=== PATIENT | female | born 1980 | race Caucasian/White ===

== ENCOUNTER → 2023-12-13 16:44 | Outpatient (CLI) | payer OTHER, SELFPAY ==
--- NOTE | 2023-12-13 | DI.MRI.S_ITS ---
PROCEDURE: MR KNEE RT WO CON INDICATIONS: meniscus derangements right knee TECHNIQUE: Noncontrast sagittal PD fast spin echo and T2 fast spin echo with fat saturation, sagittal 3-D FLASH with fat saturation; coronal T1 spin echo and PD fast spin echo with fat saturation, and axial PD fast spin echo with fat saturation through the knee. COMPARISON: [facility] [place], CR, XR KNEE ARTHRITIC SERIES BI, 12/02/2023, 11:03. FINDINGS: Image quality: Excellent. Menisci: No tear of the medial meniscus. There is extrusion of the medial meniscus body. In the lateral meniscus, there is inner margin blunting of the posterior horn, and horizontal oblique tear of the meniscus body. No extrusion of the lateral meniscus. Cruciate ligaments: The anterior and posterior cruciate ligaments appear intact. Medial structures: The medial collateral ligament appears intact. The posterior oblique ligament, semimembranosus tendon insertions, oblique popliteal ligament, and meniscocapsular junction appear intact. Visualized portions of the pes anserinus tendons appear normal. No abnormal bursal fluid. Lateral structures: The lateral collateral ligament, long and short heads of the biceps femoris tendon appear intact. The popliteus tendon appears normal; the popliteofibular ligament appears intact. The posterosuperior and anteroinferior popliteomeniscal fascicles appear intact. The arcuate and fabellofibular ligaments appear intact, on either side of the lateral inferior geniculate artery. Iliotibial band appears normal. Anterior structures: The quadriceps and patellar tendon is intact. The medial and lateral patellofemoral ligament is intact. Bones and cartilage: Lateral tilt of the patella. There is near chondral denudation of the lateral patellar facet with subchondral cystic changes and subchondral marrow edema. Mild chondral thinning of the lateral facet. There is complete chondral denudation of the lateral trochlea with osteophytosis and associated subchondral marrow edema. There is osteophytosis of the medial trochlea as well. The cartilage of the medial and lateral compartment are well maintained. No acute fracture. Joint space: Moderate knee effusion with multiple intra-articular bodies, for reference, the largest 1 is anterior to the intercondylar notch, measuring 1.1 cm (series 5, image 21). Small popliteal cyst. IMPRESSION: 1. Mild extrusion of the medial meniscus body without tear. 2. Tear of the lateral meniscus. 3. Lateral tilt of the patella. Severe chondrosis of the patellofemoral compartment. 4. Moderate knee effusion with multiple intra-articular bodies. Dictated by: Renee Valle M.D. on 12/14/2023 at 19:41 Approved by: Renee Valle M.D. on 12/14/2023 at 19:51
== END ==
LOC: MRI 16:47
PROVIDERS: PCP Registered Nurse; Referring Provider Physical Medicine & Rehabilitation; Visit Provider Physical Medicine & Rehabilitation
DX: S83.281A Other tear of lateral meniscus, current injury, right knee, initial encounter (principal); M22.41 Chondromalacia patellae, right knee; M25.461 Effusion, right knee; M71.21 Synovial cyst of popliteal space [Baker], right knee
CPT/HCPCS: 73721

== ENCOUNTER → 2024-01-19 16:30 | Outpatient (CLI) | payer OTHER, SELFPAY ==
[2024-01-19 17:38] LABS: Albumin 4.3 g/dL (3.5-5.0); Blood Urea Nitrogen 12 mg/dL (7-17); Carbon Dioxide 25 mmol/L (22-32); Chloride 106 mmol/L (98-107); Estimated Glomerular Filt Rate > 60 mL/min (>60); Glucose 192 mg/dL (70-100); HEMOLYSIS < 15 (0-50); Sodium 136 mmol/L (137-145)
[2024-01-19 17:43] LABS: Hemoglobin A1C% w Est Avg Glu 6.6 % (4.0-6.0)
[2024-01-19 17:45] LABS: Add Manual Diff / Slide Review NO; Basophils Absolute Auto 100 /uL (0-100); Basophils Percent Auto 1.2 % (0-2); Eosinophils Absolute Auto 300 /uL (0-450); Eosinophils Percent Auto 5.1 % (2-4); Hematocrit 37.2 % (36-46); Hemoglobin 12.2 g/dL (12.0-16.0); Lymphocytes Absolute Auto 1600 /uL (1100-4500); Lymphocytes Percent Auto 29.2 % (25-40); Mean Corpuscular HGB Conc 32.8 % (30-36); Mean Corpuscular Hemoglobin 28.3 PG (26-34); Mean Corpuscular Volume 86.2 fL (80-100); Monocytes Absolute Auto 500 /uL (0-900); Monocytes Percent Auto 9.5 % (3-14); Neutrophils Absolute Auto 3000 /uL (1500-7000); Platelet Count 294 X10^3/uL (150-400); Prealbumin 16.6 mg/dL (17.6-36.0); Red Blood Cell Count 4.32 X10^6/uL (4.0-5.2); Red Cell Distribution Width 15.3 % (11.6-14.8); White Blood Cell Count 5.4 X10^3/uL (4.5-11.0)
[2024-01-19 17:55] LABS: Vitamin D 25 Hydroxy (D3) 31.6 ng/mL (30.0-100.0)
== END ==
LOC: LAB 16:31
PROVIDERS: PCP Registered Nurse; Referring Provider Orthopaedic Surgery Adult Reconstructive Orthopaedic Surgery; Visit Provider Orthopaedic Surgery Adult Reconstructive Orthopaedic Surgery
DX: Z01.818 Encounter for other preprocedural examination (principal); Z01.812 Encounter for preprocedural laboratory examination; R77.0 Abnormality of albumin; E55.9 Vitamin D deficiency, unspecified
CPT/HCPCS: 36415; 80048; 82040; 82306; 83036; 84134; 85025

== ENCOUNTER → 2024-01-19 17:32 | Outpatient (CLI) | payer OTHER, SELFPAY | LOC: RESP 17:34 | PROVIDERS: PCP Registered Nurse; Referring Provider Orthopaedic Surgery Adult Reconstructive Orthopaedic Surgery; Visit Provider Orthopaedic Surgery Adult Reconstructive Orthopaedic Surgery | DX: Z01.818 Encounter for other preprocedural examination (principal) | CPT/HCPCS: 36415; 80048; 82040; 82306; 83036; 84134; 85025; 93005; 93010 ==

== ENCOUNTER 2024-03-06 06:11 | Day surgery (SDC) | payer OTHER, SELFPAY ==
[2024-02-23 12:30] VITALS: BMI 29.0
--- NOTE | 2024-03-05 20:41 | DI.RAD.S_ITS ---
PROCEDURE: XR KNEE LT 1TO2V INDICATIONS: tka TECHNIQUE: 2 view(s) of the knee acquired. COMPARISON: [facility], CR, XR BONE LENGTH SCANOGRAM, 02/17/2024, 16:09. [facility], [place], XR KNEE RT 1TO2V, 03/06/2024, 12:33. FINDINGS: Bones: Patient is status post knee joint arthroplasty. Hardware components are in expected positions. Visualized bony structures are intact. Soft tissues: Overlying postoperative changes are noted. IMPRESSION: Expected post-operative appearance of a knee arthroplasty. Dictated by: Noah Mccarthy M.D. on 03/06/2024 at 14:05 Approved by: Noah Mccarthy M.D. on 03/06/2024 at 14:06
--- NOTE | 2024-03-05 20:41 | DI.RAD.S_ITS ---
PROCEDURE: XR KNEE RT 1TO2V INDICATIONS: tka TECHNIQUE: 3 view(s) of the knee acquired. COMPARISON: [facility], V[place], XR KNEE LT 1TO2V, 03/06/2024, 12:33. [facility] [place], CR, XR BONE LENGTH SCANOGRAM, 02/17/2024, 16:09. FINDINGS: Bones: Patient is status post knee joint arthroplasty. Hardware components are in expected positions. Visualized bony structures are intact. Soft tissues: Overlying postoperative changes are noted. IMPRESSION: Expected post-operative appearance of a knee arthroplasty. Dictated by: Noah Mccarthy M.D. on 03/06/2024 at 14:07 Approved by: Noah Mccarthy M.D. on 03/06/2024 at 14:08
[2024-03-06] VITALS (11 sets, daily range): BP systolic 91–124; BP diastolic 44–78; PULSE 62–94; RESP 14–18; TEMP 36.3–36.7; O2SAT 93–100; BMI 27.3; BMI 60.4
[2024-03-06] MEDS: SCOPOLAMINE 1 PATCH TOP (06:58)
[2024-03-06] MEDS: LACTATED RINGERS 1,000 ML 42 ML IV ×3 (06:58→11:06)
[2024-03-06] MEDS: CELECOXIB 200 MG CAPSULE 400 MG PO (06:59)
[2024-03-06] MEDS: ACETAMINOPHEN 325 MG TABLET 975 MG PO (06:59)
[2024-03-06] MEDS: MIDAZOLAM 2 MG/2 ML VIAL IV (07:52)
--- NOTE | 2024-03-06 07:55 | PM.PREOP ---
Pre-operative Note Interval Note History & Physical reviewed/Exam performed by Physician: Yes Changes to H&P: No
[2024-03-06] MEDS: TRANEXAMIC ACID 1,000 MG VIAL 1000 MG INJ ×2 (08:15→12:00)
[2024-03-06] MEDS: CEFAZOLIN 2 GM/100 ML PREMIX 100 ML IV ×3 (08:20→16:47)
--- NOTE | 2024-03-06 08:59 | SUR.OPER ---
Supine on padded OR bed. Pillow under head, arms secured on padded armboards <90 degree abduction. Safety belt across abdomen. Both leg ssecured in [employer]/Cheo/Nathe positioner. Foam padded brace at both thighs.
[2024-03-06] MEDS: ROPIVACAINE/EPI/CLONIDINE/KET 50 ML SYRINGE 100 ML INJ (09:15)
--- NOTE | 2024-03-06 12:11 | P.OP_ITS ---
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 She had previously run in competitive ultra marathons and had progressed to the point that she was only able to run 5 miles at a time with severe pain afterwards, describing herself as being in tears at the conclusion of any run. She had tried numerous nonoperative modalities and attempt to control her symptoms including hyaluronic acid injections, PRP injections, physical therapy, activity modification, NSAIDs, Tylenol, ice. Having failed to maintain her high activity levels despite exhausting all available nonoperative treatment we discussed the role of knee replacement in improving her symptoms and function. Preoperative radiographs demonstrated severe patellofemoral degeneration with c oncomitant although less severe joint space narrowing in the medial and lateral compartments. We did discuss the possibility of patellofemoral arthroplasty to provide her symptom relief although based on the presence of degeneration occurring in the tibial femoral joint I felt that she would eventually progress to a total knee arthroplasty later in life and evidence on this regard indicates that the risk of conversion to total knee arthroplasty following patellofemoral arthroplasty is very high. I did discuss this in detail with her and she did additional research on that procedure and did not desire to move forward with what she viewed as a temporizing procedure. We therefore discussed the role of total knee arthroplasty. Her desire to returned to running postoperatively was the most pertinent factor in our discussions of this potential procedure. There is scant evidence regarding running following joint replacement as this is traditionally been cautioned against prior to the muslim of highly cross-linked polyethylene. The best available evidence we were able to find suggested that 1 in 3 patients who desired to returned to running following the joint replacement were unable to do so because of ongoing pain. I discussed this with her in detail and she expressed that if she was not able to returned to running due to pain but was able to returned to long-distance biking she would view this as a satisfactory outcome. She therefore elected to move forward with total knee arthroplasty. She desired to move forward with this in a simultaneous fashion and was counseled regarding the difficult recovery associated with bilateral knee replacement as well as the increase in perioperative risks. Understanding these risks she wished to proceed with simultaneous surgery. Intraoperatively similar findings were discovered in the bilateral knees. She did have predominantly patellofemoral degeneration however her femoral sided degenerative changes extended well outside of the balance of a patellofemoral arthroplasty down into the articulation with the tibia. On both sides she had large osteophytes extending down into the medial and lateral femur and subchondral sclerosis throughout those regions. On the right side which was performed 1st, I initially cut the tibia at 4 mm off the medial side after using electrocautery to identify the subchondral bone underneath the remaining cartilage in the tibia. I initially found that I was unable to place a size 10 spacer block in the extended joint so I recut the tibia for an additional 2 mm. I was then able to fit a size 10 spacer block in but when I used the gap balancing device indicated that I was tight laterally. I had not anticipated that this would be the case as she had more varus wear on her standing AP radiograph but had valgus alignment on her long leg scanogram. As I had not expected any sort of soft tissue released to be necessary in order to balance her knee I therefore rechecked the tibial cut. I found that when I had cut the tibia for an additional 2 mm it had been cut into slight valgus. I therefore replaced the cut block and we ran the saw over the lateral side of the tibia. There was some sclerotic bone in that area which had deflected the saw blade. After recovering it the alignment of the tibial cut was improved to mechanical alignment and the gap visual designer now indicated appropriate balanced between the medial and lateral sides. The right side progressed from there to balanced with 3? of femoral rotation, a size 9 femur, and a size E tibia. Given her young age and high activity level I strongly desired biologic fixation and used uncemented components. Because of her intended high activity level I did not resurface her patella. Although she does have predominantly patellofemoral based degeneration the evidence regarding uncemented fixation of patellar components is poor and I worried about the potential of loosening of a patellar component should I have cemented one in place. I therefore performed a lateral facetectomy and left the patella unresurfaced. The decision to leave her patella un resurfaced was discussed in great detail with her preoperatively. Additionally, her father is a retired orthopedic surgeon and I spoke with him at length regarding my plan for her procedure with particular emphasis on my plan to leave her patella unresurfaced in order to maximize the durability of her knee construct given her postoperative goals. After the conclusion of the right side all disposable instruments were replaced, the surgical team donned new gowns and gloves, and proceeded with the left side in similar fashion to the right. On the left side I took a 6 mm cut on the tibia given the need for a recut on the initial side. I ended up with similar, although slightly different, parameters for the left knee. I used a size 8 femur which is 1 size smaller than the contralateral side. I used a size E tibia which is 1 size larger than the contralateral side. I used a 11 mm medial congruent polyethylene insert, which was 1 size larger than the other side. At the conclusion of the procedure both sides had appropriate patellar tracking, good stability with varus and valgus stress with minimal lift-off in extension, full extension, no limitations in flexion such that the heel impacted the buttock when the knee was allowed to passively flex, and minimal lift-off of the medial and lateral compartments in 90? of flexion with internal and external rotation through the hip. Preoperative Setup: This patient was seen preoperatively and evaluated for knee pain which was refractory to numerous nonoperative treatment modalities. Their pain correlated with radiographic changes demonstrating significant degeneration in the knee joint. The risks and benefits of continued nonoperative management versus operative management were discussed at length and all of the patient?s questions were answered. Additional educational materials providing further details beyond our discussion in clinic were provided via a publicly available patient education video which included the incidence of medical complications associated with total knee arthroplasty, reasons for revision following total knee arthroplasty, and patient satisfaction rates following total knee arthroplasty. That video can be accessed at [email or web address] . With this understanding of the risks inherent to the procedure, the patient elected to move forward with operative management. Following preoperative optimization, the patient was scheduled for surgery. The patient was met in the preoperative holding area the day of the procedure and all questions were answered. The p atient?s nares were swabbed with betadine in order to decolonize them from MRSA. Informed consent was signed and the laterality limb was marked with indelible ink.? The patient was brought back to the operating room where anesthesia was induced. The patient was transferred to the operating table and all bony prominences were padded. The operative site was prepped and draped in the usual sterile fashion. A second prep stick was utilized following drape placement. The incision was marked corresponding to the medial aspect of the tibial tubercle and the patella. Ioban was wrapped circumferentially around the knee. Prior to incision, tranexamic acid and cefazolin were administered. Templating images were displayed. A timeout procedure was performed verifying the patient?s identity, medical comorbidities, allergies, relevant medications, anesthesia type and the surgical plan. All present were in agreement. The assistance of a physician foundation assistant was required for positioning, room setup, soft tissue retraction and wound closure. Without this assistance, the procedure would have been significantly more challenging and time consuming.?? Right Gap-Balanced Uncemented Debra Persona Medial-Congruent Primary Total Knee Arthroplasty Implants: * Size 9 PPS Cruciate Retaining Femoral Component * Size E OsseoTi Tibial Component * Size 10 Medial Congruent Polyethylene Insert * Unresurfaced Patella Procedure in Detail: The tourniquet was inflated prior to incision. I made an anterior incision over the knee, dissected through the subcutaneous tissues and identified the lateral border of the VMO. Medial and lateral soft tissue flaps were developed. A midvastus parapatellar arthrotomy was performed ensuring that adequate capsular tissue would remain for closure at the conclusion of the procedure. The hip was brought into extension and the medial soft tissues were released off the joint line of the tibia. Tissue overlying the distal anterior femur was released to allow for later assessment for anterior notching but left in place. A portion of the retropatellar fat pad was excised while protecting the patellar tendon. The patella was everted. The patella was not resurfaced. Osteophytes were excised and a lateral facetectomy was performed. The patella was released from its everted position. ?? I flexed the knee to 90 degrees and placed retractors to allow access to the notch. An opening reamer was used to gain access to the femoral canal and an intramedullary kalyan was introduced into the canal. Diaphyseal fit was obtained in order to allow a distal femoral resection at 5 degrees relative to the anatomic axis, thereby aiming to achieve mechanical alignment of the eventual implant. A +1 resection was planned and assessed using an adelina wing. I then made the cut using a sagittal saw. This provided additional access to the femoral notch. The ACL and PCL were excised. Retractors were placed on the lateral and medial tibia. I hyperflexed the knee while externally rotating it to sublux the tibia anteriorly. I placed a PCL retractor posteriorly and used this to provide additional anterior subluxation. The remainder of the PCL root was released. An intramedullary reamer was used in the ACL footprint to provide access to the tibial canal. An extramedullary guide was positioned to allow a resection perpendicular to the anatomic and mechanical axes of the tibia, thereby aiming to achieve mechanical alignment of the eventual implant. A +4 resection off the medial tibia was planned and the tibial cutting jig was pinned in place. I evaluated the cut depth, varus-valgus alignment and slope of the planned tibial resection and deemed them satisfactory. I cut the tibia with a sagittal saw while using retractors to protect the MCL, patellar tendon, and posterolateral structures.? I found that a size 10 spacer block was not able to fit in the knee so I recut for an additional 2 mm. The knee was repositioned in extension and the Fuzion soft tissue balancing gauge was introduced. This demonstrated that there was excess lateral tightness. I therefore rechecked the tibial cut and found that it was cut in valgus, likely during the recut when it had deflected off sclerotic bone laterally. I therefore replaced the cut guide and rewrap the saw over the lateral side resecting some additional bone there. I checked the cut alignment again and found that it was now in more neutral mechanical alignment. I rechecked the gap visual designer and found that there was now equal tension between the medial and lateral sides. When 60 pounds of force was applied to the Fuzion device, the extension gap opened to 11 mm. I moved the knee into 90 degrees of flexion, and the Fuzion device was recalibrated by removing a 9 mm siddhartha to allow assessment of the flexion gap. The Fuzion was placed perpendicular to the resected surface of the tibia and the resected surface of the distal femur. Sixty pounds of traction was applied to match the tension of the extension gap. This externally rotated the femur to 4 degrees. Pins were placed in the 10 mm holes. The measured resection guide was placed over the pins to allow sizing. Appropriate sizing was determined and a 4-in-1 block was placed. This was double checked using the Fuzion device to ensure that it would open to an equal distance as the extension gap when the same amount of force was applied. The Fuzion block was also used to assess flexion gap symmetry. An adelina wing was used to ensure there would be no anterior notching. Retractors were placed to protect the soft tissues during resection. Captured cuts were performed with a sagittal saw for the anterior and posterior femur as well as the corresponding chamfers.? Trial components were placed and the construct was assessed. Range of motion was assessed by ensuring the knee could achieve full extension and assessing maximum passive knee flexion by elevating the femur and allowing the heel to passively fall towards the buttock. Gap symmetry was assessed by stressing the medial and lateral compartments in both extension and flexion. Laxity was assessed in both extension and flexion and the polyethylene trial was adjusted with shims as necessary. Patellar tracking was assessed with knee flexion. Once satisfied with the construct, I moved forward with implant insertion. Lug holes were drilled in the femur and the tibia was prepped ensuring appropriate sizing and rotation relative to the tibial tubercle.?? The bony ends were irrigated. A portion of the anterior chamfer cut was utilized as to plug the hole in the femur from the intramedullary kalyan. I exposed the tibia and impacted the tibial component into place. The tibia was reduced underneath the femur. I placed the femoral component as well as the intended polyethylene trial. I brought the knee into extension and manually pressurized the construct by pushing on the heel. The knee was bathed in a dilute mixture of betadine and peroxide. A mixture of Ropivacaine, Epinephrine, Clonidine and Toradol was infiltrated throughout the soft tissues into structures including the VMO, patellar tendon, quadriceps tendon, MCL and femoral periosteum. A low adductor canal block was also performed using this mixture . The knee was copiously irrigated with pulse lavage. Once cement had been allowed to dry the knee was again trialed. Range of motion was assessed by ensuring the knee could achieve full extension and assessing maximum passive knee flexion by elevating the femur and allowing the heel to passively fall towards the buttock. Gap symmetry was assessed by stressing the medial and lateral compartments in both extension and flexion. Laxity was assessed in both extension and flexion and the polyethylene trial was adjusted with shims as necessary. Patellar tracking was assessed with knee flexion. The tourniquet was let down and the polyethylene trial was removed. I inspected the knee inspected for any residual bleeding. Once hemostasis was achieved I inserted the final polyethylene and ensured appropriate engagement of the dovetail locking mechanism.?? The arthrotomy was closed with absorbable interrupted suture ensuring that this extended to the top of the arthrotomy. This was backed up with running barbed suture throughout the arthrotomy. The skin was closed with 2-0 and 3-0 sutures. Surgical glue was applied and a soft dressing was placed.?The sponge, instrument and needle counts were reported as being correct at the end of the case.??No obvious complications occurred. Left Gap-Balanced Uncemented Debra Persona Medial-Congruent Primary Total Knee Arthroplasty Implants: * Size 8 PPS Cruciate Retaining Femoral Component * Size F OsseoTi Tibial Component * Size 11 Medial Congruent Polyethylene Insert * Unresurfaced Patella Procedure in Detail: The tourniquet was inflated prior to incision. I made an anterior incision over the knee, dissected through the subcutaneous tissues and identified the lateral border of the VMO. Medial and lateral soft tissue flaps were developed. A midvastus parapatellar arthrotomy was performed ensuring that adequate capsular tissue would remain for closure at the conclusion of the procedure. The hip was brought into extension and the medial soft tissues were released off the joint line of the tibia. Tissue overlying the distal anterior femur was released to allow for later assessment for anterior notching but left in place. A portion of the retropatellar fat pad was excised while protecting the patellar tendon. The patella was everted. The patella was not resurfaced. Osteophytes were excised and a lateral facetectomy was performed. The patella was released from its everted position. ?? I flexed the knee to 90 degrees and placed retractors to allow access to the notch. An opening reamer was used to gain access to the femoral canal and an intramedullary kalyan was introduced into the canal. Diaphyseal fit was obtained in order to allow a distal femoral resection at 5 degrees relative to the anatomic axis, thereby aiming to achieve mechanical alignment of the eventual implant. A +1 resection was planned and assessed using an adelina wing. I then made the cut using a sagittal saw. This provided additional access to the femoral notch. The ACL and PCL were excised. Retractors were placed on the lateral and medial tibia. I hyperflexed the knee while externally rotating it to sublux the tibia anteriorly. I placed a PCL retractor posteriorly and used this to provide additional anterior subluxation. The remainder of the PCL root was released. An intramedullary reamer was used in the ACL footprint to provide access to the tibial canal. An extramedullary guide was positioned to allow a resection perpendicular to the anatomic and mechanical axes of the tibia, thereby aiming to achieve mechanical alignment of the eventual implant. A +6 resection off the medial tibia was planned and the tibial cutting jig was pinned in place. I evaluated the cut depth, varus-valgus alignment and slope of the planned tibial resection and deemed them satisfactory. I cut the tibia with a sagittal saw while using retractors to protect the MCL, patellar tendon, and posterolateral structures.? The knee was repositioned in extension and the Fuzion soft tissue balancing gauge was introduced. This demonstrated that there was equal tension in the medial and lateral compartments of the knee with the knee in full extension and no additional soft tissue releases were necessary. When 50 pounds of force was applied to the Fuzion device, the extension gap opened to 12 mm. I moved the knee into 90 degrees of flexion, and the Fuzion device was recalibrated by removing a 9 mm siddhartha to allow assessment of the flexion gap. The Fuzion was placed perpendicular to the resected surface of the tibia and the resected surface of the distal femur. Fifty pounds of traction was applied to match the tension of the extension gap. This externally rotated the femur to 5 degrees. Pins were placed in the 12 mm holes. The measured resection guide was placed over the pins to allow sizing. Appropriate sizing was determined and a 4-in-1 block was placed. This was double checked using the Fuzion device to ensure that it would open to an equal distance as the extension gap when the same amount of force was applied. The Fuzion block was also used to assess flexion gap symmetry. An adelina wing was used to ensure there would be no anterior notching. Retractors were placed to protect the soft tissues during resection. Captured cuts were performed with a sagittal saw for the anterior and posterior femur as well as the corresponding chamfers.? Trial components were placed and the construct was assessed. Range of motion was assessed by ensuring the knee could achieve full extension and assessing maximum passive knee flexion by elevating the femur and allowing the heel to passively fall towards the buttock. Gap symmetry was assessed by stressing the medial and lateral compartments in both extension and flexion. Laxity was assessed in both extension and flexion and the polyethylene trial was adjusted with shims as necessary. Patellar tracking was assessed with knee flexion. Once satisfied with the construct, I moved forward with implant insertion. Lug holes were drilled in the femur and the tibia was prepped ensuring appropriate sizing and rotation relative to the tibial tubercle.?? The bony ends were irrigated. A portion of the anterior chamfer cut was utilized as to plug the hole in the femur from the intramedullary kalyan. I exposed the tibia and impacted the tibial component into place. The tibia was reduced underneath the femur. I placed the femoral component as well as the intended polyethylene trial. I brought the knee into extension and manually pressurized the construct by pushing on the heel. The knee was bathed in a dilute mixture of betadine and peroxide. A mixture of Ropivacaine, Epinephrine, Clonidine and Toradol was infiltrated throughout the soft tissues into structures including the VMO, patellar tendon, quadriceps tendon, MCL and femoral periosteum. A low adductor canal block was also performed using this mixture . The knee was copiously irrigated with pulse lavage. Once cement had been allowed to dry the knee was again trialed. Range of motion was assessed by ensuring the knee could achieve full extension and assessing maximum passive knee flexion by elevating the femur and allowing the heel to passively fall towards the buttock. Gap symm etry was assessed by stressing the medial and lateral compartments in both extension and flexion. Laxity was assessed in both extension and flexion and the polyethylene trial was adjusted with shims as necessary. Patellar tracking was assessed with knee flexion. The tourniquet was let down and the polyethylene trial was removed. I inspected the knee inspected for any residual bleeding. Once hemostasis was achieved I inserted the final polyethylene and ensured appropriate engagement of the dovetail locking mechanism.?? The arthrotomy was closed with absorbable interrupted suture ensuring that this extended to the top of the arthrotomy. This was backed up with running barbed suture throughout the arthrotomy. The skin was closed with 2-0 and 3-0 sutures. Surgical glue was applied and a soft dressing was placed.?The sponge, instrument and needle counts were reported as being correct at the end of the case.??No obvious complications occurred. The patient was transferred from the operating table back to a stretcher. The patient emerged from anesthesia without difficulty and was taken to the PACU in a stable condition.? Plan for aftercare: * Weightbearing as tolerated * Mobilization as soon as the patient has recovered from anesthesia * Type 1 Diabetic with insulin pump in place. If permissible to use this during her hospital stay we will. If not, then we will use a sliding scale during her stay * Aspirin 81 twice per day for DVT prophylaxis * Multimodal pain regimen with no IV opioids ordered * Anticipate discharge home tomorrow * Follow up at [facility] in 2 weeks * Detailed postoperative instructions available at [email or web address]
[2024-03-06] MEDS: diphenhydrAMINE 50 MG/ML VIAL 12.5 MG IV (13:15)
--- NOTE | 2024-03-06 13:35 | SUR.PHASEI ---
Bladder scan completed. 0ml in bladder. Koki AGUIRRE assuming care and aware.
[2024-03-06] MEDS: LACTATED RINGERS 1,000 ML 100 ML IV (13:54)
[2024-03-06] MEDS: ACETAMINOPHEN 325 MG TABLET 650 MG PO ×2 (13:55→19:44)
[2024-03-06] MEDS: IBUPROFEN 600 MG TABLET PO ×2 (13:55→19:42)
--- NOTE | 2024-03-06 15:16 | PT.IIE ---
Current Diagnoses Unilateral primary osteoarthritis, right knee (03/06/24) Unilateral primary osteoarthritis, left knee (03/06/24) Surgery Performed Operation Date: 03/06/24 07:45 Actual Procedures p Total Knee Arthroplasty(Bilateral) - Keith An MD Surgical History (Last Updated 02/23/24 @ 13:15 by Billie Rodgers, RN) History of bariatric surgery (2014) History of carpal tunnel release of both wrists History of surgery (2015) History of surgery History of tonsillectomy and adenoidectomy Hx of arthroscopy of right knee Hx of hernia repair (10/2015) Hx of LASIK Medical History (Last Updated 02/23/24 @ 13:15 by Billie Rodgers, RN) Anxiety Depression Diabetes type I Heartburn History of COVID-19 (~2022) Hypothyroid Osteoarthritis Physical Therapy Inpatient Evaluation/Re-Eval M1 PT/OT-IP Prior Functional Status Start: 03/06/24 14:20 Freq: NEEDED Status: Active Protocol: Document 03/06/24 14:33 MB (Rec: 03/06/24 15:15 MB [id number]) Medical Review Prior Functional Status Medical History Reviewed Yes Diet/Fluid Consistency Regular Communication WNLs Mobility and Gait I Activities of Daily Living and IADL's I, 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 PT-IP Current Condition Start: 03/06/24 14:20 Freq: NEEDED Status: Active Protocol: Document 03/06/24 14:33 MB (Rec: 03/06/24 15:15 MB [id number]) Physical Therapy Current Condition Current Condition Evaluation Date 03/06/24 Treatment Diagnosis B TKAs M3 PT-IP Subjective Start: 03/06/24 14:20 Freq: NEEDED Status: Active Protocol: Document 03/06/24 14:33 MB (Rec: 03/06/24 15:15 MB [id number]) Subjective Physical Therapy Visit Type Type Initial Evaluation Visit Start Time 14:33 Visit Stop Time 15:01 Number of NURSE STAFF INDUSTRIAL Visits 0 Physical Therapy Visit Comments Patient Comments Pt is agreeable to PT Patient Goals To get back to running ultra [email or web address] Research Therapy Pain Assessment Pain When Pain Assessed During Mobility Pain Present Pain Present Pain Reported Location BLE Intensity 5 Scale Used Numeric (0 - 10) Description Aching,Acute,With Movement Pain Management Techniques Apply Cold,Distraction, Modification of Treatment,Re- positioning,Timing of Activity with Medications M4 PT-IP Mobility and Gait Start: 03/06/24 14:20 Freq: NEEDED Status: Active Protocol: Document 03/06/24 14:33 MB (Rec: 03/06/24 15:15 MB [id number]) PT-Bed Mobility Assessment Supine to Sit Supine to Sit Standby Assistance,1 Person Assistance,Head of Bed Elevated,Bedrails Sit to Supine Sit to Supine Standby Assistance,1 Person Assistance,Head of Bed Elevated,Bedrails Scooting Scooting to Edge of Bed Standby Assistance Scooting Up and Down in Bed Standby Assistance PT-Transfer Assessment Sit to and From Stand Sit to and from Stand Standby Assistance,1 Person Assistance,Use of Upper Extremities Equipment Transfer Assistive Device Gait Belt,Front Wheeled Walker Orthotic/Prosthetic Devices or Brace: No Transfers Transfer Destination Bed Transfer Technique Ambulation Transfer Ability Level of Assist Standby Assistance Gait Assessment Gait Gait Assistance Required: Standby Assistance Distance (Feet) 50 Assistive Devices Assistive Device Gait Belt,Front Wheeled Walker Orthotic/Prosthetic Devices or Brace: No Gait Deviations General Gait Pattern Antalgic,Decreased Stride Length,Flexed Trunk Factors Limiting Gait Function Factors Limiting Gait Function Decreased Strength,Limited Range of Motion,Pain Comments Gait Comments Pt mobilizes well same day post-op B TKAs and gait trains 50'x2 PT-Balance Assessment Sitting Balance and Reactions Static Sitting Balance Ability Good Dynamic Sitting Balance Ability Good Standing Balance and Reactions Static Standing Balance Ability Good Dynamic Standing Balance Ability Good Device Used RW M5 PT-IP Objective Assessments Start: 03/06/24 14:20 Freq: NEEDED Status: Active Protocol: Document 03/06/24 14:33 MB (Rec: 03/06/24 15:15 MB [id number]) Orientation Orientation/Cognition Level of Alertness Alert Orientation Name,Age,Birthday,Month,Date, Year,Day of Week,Place, Situation Language Function Ability No Deficits Noted Safety Awareness Understands Safety Issues Memory Description No Deficits Noted Gross Range of Motion Upper Extremity ROM Assessment Within Functional Limits Lower Extremity ROM Assessment Bilaterally Impaired Impairments B knee AROM in supine 5-75 deg Strength Upper Extremity Strength Assessment Within Functional Limits Lower Extremity Strength Assessment Bilaterally Impaired Hip WNLs Knee Not MMT post-op, at least 3/5 in available range with RW Ankle WNLs Sensation Assessment Comments Sensation Comments B reports B hand numbness after gait training with RW and spoke with nsg about this M6 PT-IP Treatment Start: 03/06/24 14:20 Freq: NEEDED Status: Active Protocol: Document 03/06/24 14:33 MB (Rec: 03/06/24 15:15 MB [id number]) Physical Therapy Treatment Exercises Exercises Ankle Pumps,Quad Sets,Heel Slides,Straight Leg Raises Education Education Provided Weight Bearing Status,Post-Op Packet,Safety M7 PT-IP Assessment and Plan Start: 03/06/24 14:20 Freq: NEEDED Status: Active Protocol: Document 03/06/24 14:33 MB (Rec: 03/06/24 15:15 MB [id number]) PT Summary Assessment and Plan Potential Rehabilitation Potential Excellent Status of Condition at Evaluation Stable Summary Impairments Pain,ROM,Strength,Balance, Sensation,Bed Mobility, Transfers,Gait,Activity Tolerance Progress Towards Goals Progressing Toward Goals Assessment Summary Pt is a 44 y/o female same day post-op B TKAs. She presents with good AROM of knees in supine and can perform B SLR. She requires SBA for transfers and gait with RW and will benefit from gait training with rollator next day as this is what she hopes to use at home. She has a couple of steps to enter and a flight to her bedroom. She has a supportive and young daughter. Orthostatics are negative with BP and HR in RUE : hook lying 104/49, 70; standing 114/62 and no HR reading; standing 108/63, 103. Goals Bed Mobility Goal Independent Transfer Goal Independent,Front Wheeled Walker,Four Wheeled Walker Gait Goal Independent,Front Wheel Walker ,Four Wheel Walker Gait Distance 150 Other Goals Ascend and descend two platform steps with LRAD and no more than CGA. Ascend and descend flight of steps with left rail ascend and cane to allow bedroom entry with no more than CGA. Days to Meet Goals 2 Frequency of Treatment Frequency Of Treatment Twice a Day Treatment Plan Physical Therapy Treatment Plan Bed Mobility Training,Transfer Training,Gait Training, Therapeutic Exercise,Balance Retraining,Post Op Education, Discharge Planning,Hot or Cold Pack,Neuromuscular Re-ed, Coordination Retraining,Manual Therapy Weight Bearing Status Weight Bearing Status Weight Bear as Tolerated Recommendations To Nursing Amount of Assist Needed Standby Assistance Discharge Recommendations PT Discharge Recommendations Home with 29/03 Assist Available,Outpatient PT Other Discharge Recommendations Pt may need RW or cane, will check next treatment date Transportation Needs at Discharge Private Vehicle
[2024-03-06] MEDS: hydrOXYzine HCL 25 MG TABLET PO (16:47)
[2024-03-06] MEDS: ASPIRIN EC 81 MG TABLET PO (21:37)
[2024-03-06] MEDS: TOPIRAMATE 25 MG TABLET 50 MG PO (21:37)
[2024-03-06] MEDS: DOCUSATE 100 MG CAPSULE PO (21:37)
[2024-03-07] MEDS: CEFAZOLIN 2 GM/100 ML PREMIX 100 ML IV (00:23)
[2024-03-07] MEDS: IBUPROFEN 600 MG TABLET PO ×3 (00:29→13:51)
[2024-03-07] MEDS: ACETAMINOPHEN 325 MG TABLET 650 MG PO ×3 (00:30→13:52)
[2024-03-07 01:05] VITALS: BP 99/51; PULSE 51; RESP 18; TEMP 35.9; O2SAT 99
[2024-03-07 05:38] VITALS: BP 92/42; PULSE 64; RESP 18; TEMP 36.4; O2SAT 99
[2024-03-07 05:58] LABS: Hemoglobin 8.6 g/dL (12.0-16.0)
[2024-03-07] MEDS: LEVOTHYROXINE 75 MCG TABLET 150 MCG PO (05:59)
[2024-03-07] MEDS: TRAMADOL 50 MG TABLET PO ×2 (06:01→15:31)
--- NOTE | 2024-03-07 07:34 | PM.PNPO.1 ---
Subjective Subjective Date Patient Seen: 03/07/24 Time Patient Seen: 07:34 Interval history: Patient's pain is moderate. Denies fever or chills. No nausea or vomiting. Patient has been up ambulating in his room. Patient has her home to assist her. Exam Vital Signs (past 8 hours): - 03/07/24 01:05 03/07/24 05:38 Temperature 96.7 F L 97.6 F Pulse Rate 51 L 64 Respiratory Rate 18 18 Blood Pressure 99/51 L 92/42 L Pulse Oximetry 99 99 Oxygen Flow Rate 0 0 Oxygen Delivery Method Room Air Oxygen Flow Rate 0 Narrative Exam Narrative: 44-year-old female resting comfortably in bed in no apparent distress. Both dressings are clean, dry and intact. Motor functions intact bilateral lower extremities. Sensation grossly intact to light touch bilateral lower extremities. Const General: cooperative and comfortable Nutritional Appearance: average body habitus Orientation: alert Resp Effort & Inspection: normal respiratory effort and able to speak in complete sentences Objective Labs 03/07/24 05:25 Labs: Laboratory Results - last 24 hr 03/07/24 05:25 Hgb 8.6 L Hct 26.0 L PFSH Medical History Depression Anxiety Hypothyroid Heartburn Diabetes type I History of COVID-19 (~2022) Osteoarthritis Surgical History History of surgery Hx of arthroscopy of right knee History of carpal tunnel release of both wrists History of tonsillectomy and adenoidectomy History of surgery (2015) Hx of hernia repair (10/2015) History of bariatric surgery (2014) Hx of LASIK Social History household members: spouse and children Smoking Status: Former smoker alcohol intake: former Assessment & Plan Post-op Postoperative Procedures: Procedures Operation Date: 03/06/24 07:45 Actual Procedure Side Surgeon p Total Knee Arthroplasty Bilateral Keith An MD Postoperative day: 1 Postoperative status narrative: Status post bilateral knee arthroplasty, postop anemia due to acute blood loss during surgery Postoperative plan narrative: Weight-bearing as tolerated, mobilize with physical therapy Aspirin 81 mg b.i.d. for DVT prophylaxis Multimodal pain management Patient will work with Physical therapy this morning and likely discharge later this afternoon. Quality VTE Deep Vein Thrombosis/Pulmonary Embolism Present on Admission: No
[2024-03-07 08:00] VITALS: BP 113/51; PULSE 66; RESP 14; TEMP 36.4; O2SAT 98
[2024-03-07] MEDS: ASPIRIN EC 81 MG TABLET PO (09:02)
[2024-03-07] MEDS: CITALOPRAM 10 MG TABLET 40 MG PO (09:02)
--- NOTE | 2024-03-07 09:12 | PT.IPTN ---
Current Diagnoses Unilateral primary osteoarthritis, right knee (03/06/24) Unilateral primary osteoarthritis, left knee (03/06/24) Surgery Performed Operation Date: 03/06/24 07:45 Actual Procedures p Total Knee Arthroplasty(Bilateral) - Keith An MD Physical Therapy Treatment Note M2 PT-IP Current Condition Start: 03/06/24 14:20 Freq: NEEDED Status: Active Protocol: Document 03/06/24 14:33 MB (Rec: 03/06/24 15:15 MB [id number]) Physical Therapy Current Condition Current Condition Evaluation Date 03/06/24 Treatment Diagnosis B TKAs M3 PT-IP Subjective Start: 03/06/24 14:20 Freq: NEEDED Status: Active Protocol: Document 03/07/24 10:44 TS (Rec: 03/07/24 11:03 TS [id number]) Subjective Physical Therapy Visit Type Type Treatment Note Visit Start Time 09:12 Visit Stop Time 09:38 Number of COIN PURSE ASSEMBLER Visits 1 Physical Therapy Visit Comments Patient Comments Pt was found resting in bed, reports low amounts of pain, BP has been low and gets lightheaded and sweaty with ambulation. Therapy Pain Assessment Pain When Pain Assessed During Mobility Pain Present Pain Present Pain Reported M4 PT-IP Mobility and Gait Start: 03/06/24 14:20 Freq: NEEDED Status: Active Protocol: Document 03/07/24 10:44 TS (Rec: 03/07/24 11:03 TS [id number]) PT-Bed Mobility Assessment Supine to Sit Supine to Sit Independent,Head of Bed Elevated,Bedrails Sit to Supine Sit to Supine Independent,Head of Bed Elevated,Bedrails Scooting Scooting to Edge of Bed Independent Scooting Up and Down in Bed Independent PT-Transfer Assessment Sit to and From Stand Sit to and from Stand Standby Assistance,1 Person Assistance,Use of Upper Extremities Equipment Transfer Assistive Device Gait Belt Orthotic/Prosthetic Devices or Brace: No Comments Mobility Comments Supine to sit Ind with HOB elevated and BUE support. STS with no AD SBA, pt is unsteady and impulsive to stand before therapist is ready. She ambulated with 4WW ~150' SBA. She performed steps x3 with B handrails and CGA from spouse. Pt reported sweats and some dizziness, she ambulated back to the room. Sit to supine into bed Ind , BP in supine 112/58. STS from bed BP 82/43. Pt requested to lay back in bed due to lightheadedness. Did not attempt platform steps . Pt was left in bed, all needs met. Gait Assessment Gait Gait Assistance Required: Standby Assistance Distance (Feet) 150 Assistive Devices Assistive Device Gait Belt,4 Wheeled Walker Orthotic/Prosthetic Devices or Brace: No Gait Deviations General Gait Pattern Antalgic,Decreased Stride Length,Flexed Trunk Factors Limiting Gait Function Factors Limiting Gait Function Decreased Strength,Limited Range of Motion,Pain Comments Gait Comments Pt mobilizes well same day post-op B TKAs and gait trains 50'x2 Stair Climbing Assessment Evaluation Level of Assist On Stairs Contact Guard Assistance,1 Person Assistance Devices Stair Climbing Assistive Devices Left Railing,Right Railing Technique/Endurance Stair Climbing Direction Ascend and Descend Stair Climbing Technique Step to Step Number of Steps Climbed 3 Comments Stair Climbing Comments See mobility comments PT-Balance Assessment Sitting Balance and Reactions Static Sitting Balance Ability Good Dynamic Sitting Balance Ability Good Standing Balance and Reactions Static Standing Balance Ability Good Dynamic Standing Balance Ability Good Device Used RW M5 PT-IP Objective Assessments Start: 03/06/24 14:20 Freq: NEEDED Status: Active Protocol: Document 03/06/24 14:33 MB (Rec: 03/06/24 15:15 MB [id number]) Orientation Orientation/Cognition Level of Alertness Alert Orientation Name,Age,Birthday,Month,Date, Year,Day of Week,Place, Situation Language Function Ability No Deficits Noted Safety Awareness Understands Safety Issues Memory Description No Deficits Noted Gross Range of Motion Upper Extremity ROM Assessment Within Functional Limits Lower Extremity ROM Assessment Bilaterally Impaired Impairments B knee AROM in supine 5-75 deg Strength Upper Extremity Strength Assessment Within Functional Limits Lower Extremity Strength Assessment Bilaterally Impaired Hip WNLs Knee Not MMT post-op, at least 3/5 in available range with RW Ankle WNLs Sensation Assessment Comments Sensation Comments B reports B hand numbness after gait training with RW and spoke with nsg about this M6 PT-IP Treatment Start: 03/06/24 14:20 Freq: NEEDED Status: Active Protocol: Document 03/07/24 10:44 TS (Rec: 03/07/24 11:03 TS [id number]) Physical Therapy Treatment Education Education Provided Weight Bearing Status,Post-Op Packet,Safety Other Treatments Other Treatment Performed Educated pt on ther-ex handout M7 PT-IP Assessment and Plan Start: 03/06/24 14:20 Freq: NEEDED Status: Active Protocol: Document 03/07/24 10:44 TS (Rec: 03/07/24 11:03 TS [id number]) PT Summary Assessment and Plan Potential Rehabilitation Potential Excellent Summary Impairments Pain,ROM,Strength,Balance, Sensation,Bed Mobility, Transfers,Gait,Activity Tolerance Progress Towards Goals Progressing Toward Goals Assessment Summary Priyanka is doing well with her mobility but is limited by hypotension. She progressed her gait to ~150' SBA with use of 4WW. She performed stairs x3 with B handrails and CGA. She is orthostatic, 112/58 supine and 82/43 standing. She does have some dizziness and sweats. She did not complete steps with 4WW on platform but believe she will be able to complete. Spouse was instructed in and performed donning of gait belt, gait and stair training. PT is recommending home with 24/7 assist. Goals Bed Mobility Goal Independent Transfer Goal Independent,Front Wheeled Walker,Four Wheeled Walker Gait Goal Independent,Front Wheel Walker ,Four Wheel Walker Gait Distance 150 Other Goals Ascend and descend two platform steps with LRAD and no more than CGA. Ascend and descend flight of steps with left rail ascend and cane to allow bedroom entry with no more than CGA. Days to Meet Goals 2 Frequency of Treatment Frequency Of Treatment Twice a Day Treatment Plan Physical Therapy Treatment Plan Bed Mobility Training,Transfer Training,Gait Training, Therapeutic Exercise,Balance Retraining,Post Op Education, Discharge Planning,Hot or Cold Pack,Neuromuscular Re-ed, Coordination Retraining,Manual Therapy Weight Bearing Status Weight Bearing Status Weight Bear as Tolerated Recommendations To Nursing Amount of Assist Needed Standby Assistance Discharge Recommendations PT Discharge Recommendations Home with 24/7 Assist Available,Outpatient PT Other Discharge Recommendations Has 4WW Transportation Needs at Discharge Private Vehicle
--- NOTE | 2024-03-07 09:32 | CM.DANOTE ---
Initial DCP Assessment Visit Note Reviewed EMR and team rounds for pt's medical status and anticipated d/c needs. Met with pt and spouse at bedside to introduce self and role, pt was found to be alert/oriented and able to discuss her plan for home d/c later today after working with PT. Pt lives independently with her spouse and children in their own home in [place]. 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 She currently runs 5 miles per day, 3-times per week, although it does result in extreme pain and swelling. She is hopeful to return to running postoperatively, if possible. She was a walker for postoperative recovery, and will be seeing OP PT once she is cleared for therapies. Pt does have her post-op Ortho visit scheduled for wound check. No DCP needs are identified for assistance at this time. DCP will continue to follow for any further evolving needs prior to her d/c. Payor: [facility] Attending: Dr. An Pt is a 44 year-old F post-op day 1 from bilateral knee arthroplasty surgery. She has an ice machine with her in the room, and is working with PT later this morning. She has a hx of worsening bilateral knee arthritis which has significantly impacted her ability to exercise and manage her ADL's without significant pain. Conservative efforts at pain reduction have failed, so she moved forward with having both knees done at the same time. Discharge Planning/Care Management CM Discharge Assessment Start: 03/07/24 09:31 Freq: Status: Active Protocol: Document 03/07/24 09:31 DPL (Rec: 03/07/24 09:32 DPL [id number]) Discharge Planning Assessment Assigned Soil Chemist JESS Darling Advance Directives? No History Provided By Patient,Medical Record Has Patient been admitted in last 30 No days? Prior Living Arrangements House Household Members spouse,children Type of transporation used prior to Drives own vehicle admit Independent with ADL's Yes Is patient alert and oriented? Yes Comment N/A Caregiver for Another Yes: children DME Already Rented / Owned Elevated Toilet Seat,FWW / Walker Patient/Family Preference OP PT Therapy Barriers to Discharge No Discharge Plan Home Community Services Physical Therapy Transportation Arrangement Spouse Referrals Initiated None needed Whiteboard Updated in Patient Room with Yes name and ext. # of Soil Chemist Review Status In Process Please Provide Date Initial DC 03/07/24 Assessment Was Performed Pre-Anesthesia Assessment Start: 02/23/24 12:30 Freq: Status: Active Protocol: Document 02/23/24 12:30 CAB (Rec: 02/23/24 13:27 CAB [id number]) Pre-Anesthesia Assessment Patient Information Reviewed Via Phone Assessment Assessment Completed With Patient Diagnostic Results BMP/CMP,CBC,EKG Comment Labs/EKG @ [facility] 01/19/24 Primary Care Provider Soni Villela Seen Specialist in Last 12 Months Yes Specialist Seen Orthopedist,Other Comment GI for EGD/C-scope Primary Language Samoan Environmental Health Sanitarian Required No Height 170.18 cm Weight 83.915 kg Body Mass Index (BMI) 29.0 Hearing Ability Normal Visual Assist Contacts Dentition Type Teeth, Natural Present,Teeth, Missing Barriers to Learning None Hx Anesthesia Reactions No Hx Family Anesthesia Reaction No Hx Malignant Hyperthermia No Hx Blood Transfusions No Anesthesia Review Requested No Non Emergency Services Ambulance Driver No alcohol intake former Smoking Status Former smoker how long ago did patient quit smoking 2002 Substance Use Type does not use Pain Present Pain Reported Musculoskeletal Symptoms Difficulty Walking,Joint Pain History of Falling (Recent or History of No ) Patient is completely paralyzed or No completely immobile Mental Status Oriented to own ability Is patient on oxygen? No Does patient have SHAFFER/SOB No Hx Sleep Apnea No Currently Taking a Beta Michael No Can You Climb a Flight of Stairs Without Yes SOB Hx Chest Pain No Hx SOB No Hx Syncope or Dizziness No Anti-Coagulant Therapy No Has a Director Of Career Resources No Cardiac Testing No Hx Pacemaker/ICD No Pacemaker Rep Required? No Cardiac Clearance Received No Diet Type At Home Low Carb Dysphagia No: Vegan Gastrointestinal Symptoms Reflux Chronic UTI No Urinary Catheter Present No Hx Urinary Self Catheterization No Diabetes Yes: Type I, has insulin pump and CGM HgbA1C 6.6 Date 01/19/24 Patient No Lactating No Presence of External or Internal Medical Yes: Insulin pump, CGM, Lap Devices sleeve Marital Status Lives With spouse,children Current Living Arrangements House Number of Floors (Floors) Two Floors Support System Spouse Does the Patient Have Assistance After Yes Surgery Patient Discharge Plan Description Return Home Comment Pt advised 1 night length of stay per surgeon Feels Safe in Current Environment Yes Been Physically Hurt or Threatened By a No Person in Current Environment Are you currently considering suicide? No Do you have a plan to hurt yourself or No Plan others? Do You Have Any Spiritual Beliefs That No May Affect Your HC Choices? Do You Have Any Cultural Practices That No May Affect Your HC Choices? Who Can We Speak to About Patient's Care Family, friends Identifying Code for Release of Patient Declines to issue Information Health Care Proxy/Next of Kin Marino () Health Care Proxy Emergency Contact Name Micheal (Dad) Emergency Contact Advance Directives? No Power of Vise Hand No PAC Instructions Diabetes instructions,Do not shave/clip surgical site, Durable medical equipment, Medications to take/avoid, Nasal antibiotic,No ETOH/ petroleum product on skin DOS, NPO,Post-op transportation,Pre -surgical wash,Sensory aids, Sturdy shoes/comfortable clothes,Do not bring valuables and remove jewelry
[2024-03-07] MEDS: OXYCODONE IR 5 MG TABLET PO (10:53)
[2024-03-07] MEDS: SODIUM CHLORIDE 0.9% 500 ML 1000 ML IV (11:17)
[2024-03-07] MEDS: LACTATED RINGERS 1,000 ML 100 ML IV (11:35)
[2024-03-07 12:00] VITALS: BP 109/62; PULSE 59; RESP 16; TEMP 36.3; O2SAT 100
[2024-03-07] MEDS: ONDANSETRON 4 MG/2 ML INJ IV (12:33)
--- NOTE | 2024-03-07 13:15 | PT.IPTN ---
Current Diagnoses Unilateral primary osteoarthritis, right knee (03/06/24) Unilateral primary osteoarthritis, left knee (03/06/24) Surgery Performed Operation Date: 03/06/24 07:45 Actual Procedures p Total Knee Arthroplasty(Bilateral) - Keith An MD Physical Therapy Treatment Note M2 PT-IP Current Condition Start: 03/06/24 14:20 Freq: NEEDED Status: Active Protocol: Document 03/06/24 14:33 MB (Rec: 03/06/24 15:15 MB [id number]) Physical Therapy Current Condition Current Condition Evaluation Date 03/06/24 Treatment Diagnosis B TKAs M3 PT-IP Subjective Start: 03/06/24 14:20 Freq: NEEDED Status: Active Protocol: Document 03/07/24 16:55 TS (Rec: 03/07/24 17:05 TS [id number]) Subjective Physical Therapy Visit Type Type Treatment Note Visit Start Time 13:15 Visit Stop Time 13:30 Number of TECHNICAL INFORMATION SPECIALIST Visits 2 Physical Therapy Visit Comments Patient Comments Pt found resting in bed, reports feeling more sore and tight in B knees, is agreeable to PT. Therapy Pain Assessment Pain When Pain Assessed During Mobility Pain Present Pain Present Pain Reported M4 PT-IP Mobility and Gait Start: 03/06/24 14:20 Freq: NEEDED Status: Active Protocol: Document 03/07/24 16:55 TS (Rec: 03/07/24 17:05 TS [id number]) PT-Bed Mobility Assessment Supine to Sit Supine to Sit Independent,Head of Bed Elevated,Bedrails Sit to Supine Sit to Supine Independent,Head of Bed Elevated,Bedrails Scooting Scooting to Edge of Bed Independent Scooting Up and Down in Bed Independent PT-Transfer Assessment Sit to and From Stand Sit to and from Stand Standby Assistance,1 Person Assistance,Use of Upper Extremities Equipment Transfer Assistive Device Gait Belt,4 Wheeled Walker Orthotic/Prosthetic Devices or Brace: No Comments Mobility Comments Supine to sit Ind with BUE support. STS with 4WW SBA. She ambulated ~150'SBA with 4WW, reports some lightheadedness. PT ambulated back to room, was left in bed, all needs met. Gait Assessment Gait Gait Assistance Required: Standby Assistance Distance (Feet) 150 Assistive Devices Assistive Device Gait Belt,4 Wheeled Walker Orthotic/Prosthetic Devices or Brace: No Gait Deviations General Gait Pattern Antalgic,Decreased Stride Length,Flexed Trunk Factors Limiting Gait Function Factors Limiting Gait Function Decreased Strength,Limited Range of Motion,Pain PT-Balance Assessment Sitting Balance and Reactions Static Sitting Balance Ability Good Dynamic Sitting Balance Ability Good Standing Balance and Reactions Static Standing Balance Ability Good Dynamic Standing Balance Ability Good Device Used RW M5 PT-IP Objective Assessments Start: 03/06/24 14:20 Freq: NEEDED Status: Active Protocol: Document 03/06/24 14:33 MB (Rec: 03/06/24 15:15 MB [id number]) Orientation Orientation/Cognition Level of Alertness Alert Orientation Name,Age,Birthday,Month,Date, Year,Day of Week,Place, Situation Language Function Ability No Deficits Noted Safety Awareness Understands Safety Issues Memory Description No Deficits Noted Gross Range of Motion Upper Extremity ROM Assessment Within Functional Limits Lower Extremity ROM Assessment Bilaterally Impaired Impairments B knee AROM in supine 5-75 deg Strength Upper Extremity Strength Assessment Within Functional Limits Lower Extremity Strength Assessment Bilaterally Impaired Hip WNLs Knee Not MMT post-op, at least 3/5 in available range with RW Ankle WNLs Sensation Assessment Comments Sensation Comments B reports B hand numbness after gait training with RW and spoke with nsg about this M6 PT-IP Treatment Start: 03/06/24 14:20 Freq: NEEDED Status: Active Protocol: Document 03/07/24 16:55 TS (Rec: 03/07/24 17:05 [id number]) Physical Therapy Treatment Education Education Provided Weight Bearing Status,Post-Op Packet,Safety M7 PT-IP Assessment and Plan Start: 03/06/24 14:20 Freq: NEEDED Status: Active Protocol: Document 03/07/24 16:55 TS (Rec: 03/07/24 17:05 [id number]) PT Summary Assessment and Plan Potential Rehabilitation Potential Excellent Summary Impairments Pain,ROM,Strength,Balance, Sensation,Bed Mobility, Transfers,Gait,Activity Tolerance Progress Towards Goals Progressing Toward Goals Assessment Summary Priyanka continues to do well with her mobility. She is Ind for all bed mobility. She contineus to ambulate ~150'SBA with 4WW. She continues to be hypotensive and has some symptoms with ambulation and standing. Orthostatics were given to nursing. PT continues to recommend home with 29/03 assist. Goals Bed Mobility Goal Independent Transfer Goal Independent,Front Wheeled Walker,Four Wheeled Walker Gait Goal Independent,Front Wheel Walker ,Four Wheel Walker Gait Distance 150 Other Goals Ascend and descend two platform steps with LRAD and no more than CGA. Ascend and descend flight of steps with left rail ascend and cane to allow bedroom entry with no more than CGA. Days to Meet Goals 2 Frequency of Treatment Frequency Of Treatment Twice a Day Treatment Plan Physical Therapy Treatment Plan Bed Mobility Training,Transfer Training,Gait Training, Therapeutic Exercise,Balance Retraining,Post Op Education, Discharge Planning,Hot or Cold Pack,Neuromuscular Re-ed, Coordination Retraining,Manual Therapy Weight Bearing Status Weight Bearing Status Weight Bear as Tolerated Recommendations To Nursing Amount of Assist Needed Standby Assistance Discharge Recommendations PT Discharge Recommendations Home with 24/ Assist Available,Outpatient PT Other Discharge Recommendations Has 4WW Transportation Needs at Discharge Private Vehicle
[2024-03-07] MEDS: PANTOPRAZOLE DR 20 MG TABLET PO (15:28)
[2024-03-07] MEDS: CALCIUM CARBONATE 500 MG TAB 1000 MG PO (15:28)
[2024-03-07 16:20] VITALS: BP 115/61; PULSE 63; RESP 14; TEMP 36.3
--- NOTE | 2024-03-07 17:13 | P.DS_ITS ---
History of Present Illness History of Present Illness Date Patient Seen: 03/07/24 Time Patient Seen: 17:13 Chief complaint: Knee pain Narrative: See note Discharge Providers Provider Discharge Date: 03/07/24 Primary care physician: VONNIE Zuniga Consults: 03/05/24 20:37 Consult to Anesthesiology Routine Comment: Consulting Provider: Anesthesiologist Reason for consultation: Regional block for post operative pain control 03/06/24 13:34 Consult to Discharge Planning Routine Comment: Consult to Physical Therapy Evaluate & Treat Comment: Physician Instructions: postop TKA protocol Discharge provider: Tobias Browne PA-C Summary Hospital Course Discharge Diagnosis: Bilateral knee osteoarthritis Hospital Course: Right total knee arthroplasty (58128) Left total knee arthroplasty (78090) Same procedure as scheduled: Yes Surgeon: Keith An Underwriting Support Manager: Amber Motta Anesthesia Type: General, Spinal, Peripheral nerve block and Local Operative Notes Estimated Blood Loss (mL): 350 Procedure in detail: Tourniquet Time: Right Side: 75 minutes Left Side: 55 minutes Implants: * Size 8 PPS Cruciate Retaining Femoral Component * Size F OsseoTi Tibial Component * Size 11 Medial Congruent Polyethylene Insert * Unresurfaced Patella Patient admitted for bilateral total knee arthroplasty. Patient consented to the same. Patient underwent bilateral total knee arthroplasty March 06, 2024. Patient in her room recovering well as in stable condition. Patient had some anemia postoperatively due to blood loss during surgery. She had some hypotension and received a bolus. Hypotension has resolved. Patient has assistance at home. She is mobilize with physical therapy. Patient is weight-bearing as tolerated. Aspirin 81 mg b.i.d. for DVT prophylaxis x6 weeks. Multimodal pain management. Follow up outpatient orthopedic clinic in 2 weeks. Discharge home today in stable condition Status at Discharge Cognitive/behavioral status at discharge: at baseline, oriented Functional status at discharge: uses cane/walker Exam Vital Signs (past 8 hours): - 03/07/24 12:00 Temperature 97.4 F L Pulse Rate 59 L Respiratory Rate 16 Blood Pressure 109/62 Pulse Oximetry 100 Oxygen Delivery Method Room Air Oxygen Flow Rate 0 Narrative Exam Narrative: See progress note Objective Labs 03/07/24 05:25 Labs: Laboratory Results - last 24 hr 03/07/24 05:25 Hgb 8.6 L Hct 26.0 L PFSH Medical History Depression Anxiety Hypothyroid Heartburn Diabetes type I History of COVID-19 (~2022) Osteoarthritis Surgical History History of surgery Hx of arthroscopy of right knee History of carpal tunnel release of both wrists History of tonsillectomy and adenoidectomy History of surgery (2015) Hx of hernia repair (10/2015) History of bariatric surgery (2014) Hx of LASIK Social History household members: spouse and children Smoking Status: Former smoker alcohol intake: former Discharge Assessment & Plan Assessment and Plan Assessment: Patient progressing as expected status post bilateral total knee arthroplasty Plan of Treatment: Weight-bearing as tolerated Aspirin 81 mg b.i.d. x6 weeks Multimodal pain management Follow up outpatient orthopedic clinic in 2 weeks Discharged home today in stable condition Discharge Plan Discharge Plan Patient Disposition: Home Provider Discharge Comment: D/C meds were sent to pts pharmacy from office prior to surgery. Discharge orders & Medications Discharge Orders: Discharge (Order); Ordered 03/07/24 Ordered By: Tobias Browne Prescriptions: New tramadol 50 mg Tablet 50 mg PO QID PRN (Reason: Pain, Moderate (4-6)) Qty: 20 0RF ondansetron 4 mg Tablet,Disintegrating 4 mg PO Q4HR PRN (Reason: Nausea And Vomiting) Qty: 8 0RF Continued citalopram 40 mg Tablet 40 mg PO DAILY phendimetrazine tartrate 35 mg Tablet 35 mg PO QPM Rx Instructions: administer 1 hour before a meal levothyroxine 150 mcg Tablet 150 mcg PO DAILY Humalog U-100 Insulin 100 unit/mL Cartridge 1 sliding scale dose SUBCUT CONT Patient Comments: 1 unit for every 45 above 110 perr pump topiramate 50 mg Tablet 50 mg PO BEDTIME Follow up/Referrals: Soni Villela FNP-[facility] [Primary Care Provider] - Keith An MD [Physician] - 03/17/24 2:30 pm (Follow up w/ Alexandre Brody PA-C, at [email or web address] in [place].) Diet/Activity/Treatments Diet: Diet as Tolerated Activity: Weightbearing as tolerated. Walk frequently! Cold/Heat Therapy: Ice to knees as needed for pain. Skin/Wound/Dressing Care Report to your healthcare provider any signs of infection, such as:: chills, fever, night sweats, unusual drainage and unusual redness Dressing: May remove IKE wraps and shower on 03/09/2024. Leave Aquacel dressings intact until follow up in office. No bathing or otherwise soaking incisions. Call the office if the dressings become saturated inside. Visit Report/Discharge Packet Instructions: DI for Knee Replacement, DI for Prescription Opioid Use Stand Alone Forms: Patient Portal/API, Surgery Discharge Discharge Data Primary Care Provider: Soni Villela Attending Provider: Keith An VTE Deep Vein Thrombosis/Pulmonary Embolism Present on Admission: No
== END 2024-03-07 19:04 | disposition home or self-care (01) ==
LOC: OR 06:13 → AC 06:13
PROVIDERS: PCP Registered Nurse; Referring Provider Orthopaedic Surgery Adult Reconstructive Orthopaedic Surgery; Visit Provider Orthopaedic Surgery Adult Reconstructive Orthopaedic Surgery
PROC: 0SRC0JZ Replacement of Right Knee Joint with Synthetic Substitute, Open Approach (ICD-10-PCS; CPT 27447; principal; 2024-03-06 07:45)
DX: M17.0 Bilateral primary osteoarthritis of knee (principal)
CPT/HCPCS: 27447; 73560; 82962; 85014; 85018; 97110; 97116; 97161; 97530; C1713; C1776; A9270; J0690; J1100; J1200; J2250; J2274; J2310; J2405; J2704; J3010